=== PATIENT | female | born 1955 | race Caucasian/White ===

== ENCOUNTER 2018-06-12 07:03 | Inpatient (IN) | payer OTHER ==
[~2018-06-12] VITALS: Ht 167.6 cm; Wt 79.4 kg
[~2018-06-12 07:03] MED LIST: ALPR0.25 PO; AMLO2.5T2 PO; ESCI20TA PO; FLUT16SP16 NS; PRO40 PO; PROP10TA10 PO; THIA100T13 PO; TRAM50TA92 PO
[2018-06-12 07:09] VITALS: BP_SYST 97
[2018-06-12] MEDS ORDERED: LOSA100T3 PO (08:07)
[2018-06-12] MEDS ORDERED: MONT10TA22 (08:07)
[2018-06-12] MEDS ORDERED: HYDR12.55 (08:07)
[2018-06-12] MEDS ORDERED: TRAM1TAB33 PO (08:07)
[2018-06-12] MEDS ORDERED: VENL75CA56 PO (08:07)
[2018-06-12] MEDS ORDERED: CARV12.548 PO (08:07)
[2018-06-12] MEDS ORDERED: HYG25 PO (08:07)
[2018-06-12] MEDS ORDERED: NACL 0.9% 1,000 ML IV ONE ×3 (08:08→09:30)
[2018-06-12] MEDS ORDERED: MORPHINE 4 MG/ML INJ. SYRINGE IVP ONE ×2 (08:15→09:45)
[2018-06-12] MEDS ORDERED: ONDANSETRON HCL 4 MG/2 ML VIAL IVP ONE (08:15)
[2018-06-12 09:03] LABS: HEMATOCRIT 41.4 % (36-48); HEMOGLOBIN 14.1 g/dL (12.0-16.0); MEAN CORPUSCULAR HEMOGLOBIN 32 pg (27-31); MEAN CORPUSCULAR HGB CONC 34 % (32-36); MEAN CORPUSCULAR VOLUME 95 fL (79.0-98.0); PLATELET COUNT (AUTO) 259 K/uL (130-430); RED BLOOD CELL COUNT(AUTO) 4.34 MIL/uL (4.2-6.2); RED CELL DISTRIBUTION WIDTH 12.2 % (9.0-15.0); WHITE BLOOD COUNT (AUTO) 13.2 K/uL (4.8-10.8)
[2018-06-12 09:10] LABS: CREATININE 0.87 mg/dL (0.55-1.30)
[2018-06-12 09:12] LABS: PROTHROMBIN TIME 9.7 SECS (9.5-12.5)
[2018-06-12 09:21] LABS: ALBUMIN 3.6 g/dL (3.4-4.8)
[2018-06-12 09:23] LABS: POTASSIUM 2.9 mmol/L (3.5-5.1)
[2018-06-12 09:29] LABS: BAND % (MANUAL) 5 % (0-6); BASOPHILS % (MANUAL) 0 % (0-2); EOSINOPHILS % (MANUAL) 0 % (0-7); LYMPHOCYTES % (MANUAL) 9 % (20-46); MONOCYTES % (MANUAL) 9 % (0-11)
[2018-06-12] MEDS ORDERED: ONDANSETRON HCL 4 MG/2 ML VIAL IVP PRN ×2 (09:30→12:00)
[2018-06-12] MEDS ORDERED: METOCLOPRAMIDE HCL 10 MG/2 ML VIAL IVP PRN (09:30)
[2018-06-12] MEDS ORDERED: KCL 40 mEq in 100 mL (PREMIX) 100 ML IV ONE (09:30)
[2018-06-12] MEDS ORDERED: TEMAZEPAM 15 MG CAPSULE PO PRN (09:30)
[2018-06-12] MEDS ORDERED: KCL 40 mEq in 100 mL (PREMIX) 40 MEQ, LIDOCAINE JECT 2% PF 100 MG 75 MG in NS 150 ML IV ONE (10:15)
[2018-06-12] MEDS ORDERED: POTASSIUM CHLORIDE 40 MEQ, LIDOCAINE JECT 2% PF 100 MG 75 MG in NS 250 ML IV ONE (10:16)
[2018-06-12] MEDS ORDERED: POTASSIUM CHLORIDE 20 MEQ/PKT PACKET ONE (10:29)
[2018-06-12 11:20] VITALS: BP_SYST 112
[2018-06-12] MEDS ORDERED: hydrALAZINE HCL 20 MG/ML VIAL IVP PRN (12:00)
[2018-06-12] MEDS ORDERED: ENALAPRILAT DIHYDRATE 1.25 MG/ML VIAL IVP PRN (12:00)
[2018-06-12] MEDS ORDERED: MORPHINE 2 MG/ML INJ. SYRINGE IVP PRN (12:00)
[2018-06-12] MEDS ORDERED: ACETAMINOPHEN 325 MG TABLET PO PRN (12:00)
[2018-06-12] MEDS ORDERED: cloNIDine HCL 0.1 MG TABLET PO PRN (12:00)
[2018-06-12 12:15] VITALS: BP_SYST 133
[2018-06-12] MEDS: MORPHINE 4 MG/ML INJ. SYRINGE IVP PRN ×3 (12:18→21:23)
[2018-06-12] MEDS: BANANA BAG 1 EA, FOLIC ACID 1 MG, THIAMINE HCL 100 MG, MAGNESIUM SULFATE 1 GM, MVI 10 M... IV SCH ×5 (12:37)
[2018-06-12 16:45] VITALS: BP_SYST 113
[2018-06-12] MEDS ORDERED: MORPHINE SULFATE 10MG/10ML PF AMP EP ONE (18:15)
[2018-06-12] MEDS ORDERED: BUPIVACAINE /PF 0.75% 10 ML VIAL INJ ONE (18:15)
[2018-06-12] MEDS ORDERED: LR 1,000 ML IV.SOLN IV ONE (18:15)
[2018-06-12] MEDS ORDERED: ROPIVACAINE 40 MG/20 ML AMP EP ONE (18:15)
[2018-06-12] MEDS ORDERED: MIDAZOLAM HCL 5 MG/5 ML VIAL IVP ONE (18:15)
[2018-06-12] MEDS ORDERED: CEFAZOLIN 2 GM IVPB PREMIX 50 ML IV ONE (18:15)
[2018-06-12 19:50] VITALS: BP_SYST 111
[2018-06-13] VITALS (7 sets, daily range): BP systolic 70–134
[2018-06-13] MEDS: MORPHINE 4 MG/ML INJ. SYRINGE IVP PRN ×2 (01:43→08:05)
[2018-06-13] MEDS: LORazepam 2 MG/ML VIAL IVP PRN (03:46)
[2018-06-13] MEDS ORDERED: HYDROmorphone 2 MG/ML VIAL IVP PRN (10:30)
[2018-06-13 10:44] LABS: BASOPHILS % (AUTO) 0.5 % (0.0-2.0); EOSINOPHILS % (AUTO) 0.4 % (0.0-4.0); HEMATOCRIT 34.5 % (36-48); LYMPHOCYTES # (AUTO) 0.9 K/uL (1.0-5.5); LYMPHOCYTES % (AUTO) 13.7 % (20.5-51.5); MEAN CORPUSCULAR HEMOGLOBIN 34 pg (27-31); MEAN CORPUSCULAR HGB CONC 35 % (32-36); MEAN CORPUSCULAR VOLUME 97 fL (79.0-98.0); MONOCYTES # (AUTO) 1.2 K/uL (0.0-1.0); MONOCYTES % (AUTO) 17.7 % (1.7-9.3); NEUTROPHILS # (AUTO) 4.4 K/uL (1.8-7.7); NEUTROPHILS % (AUTO) 67.7 % (40.0-70.0); PLATELET COUNT (AUTO) 183 K/uL (130-430); RED BLOOD CELL COUNT(AUTO) 3.58 MIL/uL (4.2-6.2); RED CELL DISTRIBUTION WIDTH 12.5 % (9.0-15.0)
[2018-06-13 11:00] LABS: WHITE BLOOD COUNT (AUTO) 6.5 K/uL (4.8-10.8)
[2018-06-13 11:01] LABS: CALCIUM 8.7 mg/dL (8.4-11.0); CREATININE 0.68 mg/dL (0.55-1.30); POTASSIUM 3.3 mmol/L (3.5-5.1)
[2018-06-13 11:16] LABS: THYROID STIMULATING HORMONE 1.26 uIu/mL (0.36-3.74); TOTAL BILIRUBIN 1.3 mg/dL (0.0-1.0)
[2018-06-13 11:26] LABS: BILIRUBIN,URINE NEGATIVE (NEGATIVE); COLOR,URINE YELLOW (YELLOW); GLUCOSE,URINE NEGATIVE (NEGATIVE); KETONES,URINE NEGATIVE (NEGATIVE); LEUKOCYTE ESTERASE ,URINE 3+ (NEGATIVE); NITRITE, URINE NEGATIVE (NEGATIVE); PROTEIN URINE NEGATIVE (NEGATIVE)
[2018-06-13 11:29] LABS: BLOOD, URINE TRACE (NEGATIVE); CLARITY/URINE SLIGHTLY HAZY (CLEAR)
[2018-06-13 11:50] LABS: BACTERIA,URINE MODERATE /HPF (None Seen); WBC,URINE 20-50 /HPF (0-3)
[2018-06-13] MEDS: BANANA BAG 1 EA, FOLIC ACID 1 MG, THIAMINE HCL 100 MG, MAGNESIUM SULFATE 1 GM, MVI 10 M... IV SCH ×5 (12:37)
[2018-06-13] MEDS ORDERED: POTASSIUM CHLORIDE 40 MEQ, LIDOCAINE JECT 2% PF 100 MG 75 MG in NS 250 ML IV ONE (17:00)
[2018-06-13] MEDS ORDERED: POLYMYXIN 500,000/BACIT.10,000 UNITS in NS IRR 1 L IR ONE (17:09)
[2018-06-13] MEDS ORDERED: ROPIVACAINE 0.2% 550 ML INJ SCH (19:05)
[2018-06-13] MEDS ORDERED: KETOROLAC TROMETHAMINE 30 MG VIAL IVP PRN (19:15)
[2018-06-13] MEDS ORDERED: MORPHINE SULFATE 10MG/10ML PF AMP SP SCH (19:15)
[2018-06-13] MEDS ORDERED: KETOROLAC TROMETHAMINE 60 MG/2 ML VIAL IM PRN (19:15)
[2018-06-13] MEDS ORDERED: OXYCODONE/ACETAMINOPHEN *10*mg/325 mg TABLET PO PRN (19:15)
[2018-06-13] MEDS ORDERED: fentaNYL CITRATE/PF 100 MCG/2 ML AMP IVP PRN ×2 (19:15)
[2018-06-13] MEDS ORDERED: DIPHENHYDRAMINE INJ 50 MG/ML VIAL IVP PRN ×2 (19:15)
[2018-06-13] MEDS ORDERED: ONDANSETRON HCL 4 MG/2 ML VIAL IVP PRN ×3 (19:15)
[2018-06-13] MEDS ORDERED: NALOXONE HCL 0.4 MG/ML AMP (NARCAN) IVP PRN ×2 (19:15)
[2018-06-13] MEDS ORDERED: NALBUPHINE HCL 10 MG/ML AMP IVP PRN ×2 (19:15)
[2018-06-13] MEDS ORDERED: MILK OF MAGNESIA 30 ML UDC PO PRN (22:00)
[2018-06-13] MEDS ORDERED: HYDROcodone/ACETAMIN 5-325 MG TAB (NORCO/ VICODIN) PO PRN (22:00)
[2018-06-13] MEDS ORDERED: MEPERIDINE HCL/PF 25 MG/ML DISP.SYRIN ONE (22:30)
[2018-06-13] MEDS ORDERED: MEPERIDINE HCL/PF 25 MG/ML DISP.SYRIN IVP PRN (22:30)
[2018-06-14] VITALS (12 sets, daily range): BP systolic 97–145
[2018-06-14] MEDS: HYDROmorphone 1 MG INJ. 1 MG/ML AMPUL IVP PRN ×3 (01:11→20:09)
[2018-06-14] MEDS: ASCORBIC ACID 500 MG TABLET PO SCH ×2 (08:36→20:57)
[2018-06-14 09:45] LABS: BASOPHILS % (AUTO) 0.4 % (0.0-2.0); EOSINOPHILS % (AUTO) 0.4 % (0.0-4.0); HEMATOCRIT 32.3 % (36-48); HEMOGLOBIN 10.9 g/dL (12.0-16.0); LYMPHOCYTES # (AUTO) 0.7 K/uL (1.0-5.5); LYMPHOCYTES % (AUTO) 9.8 % (20.5-51.5); MEAN CORPUSCULAR HEMOGLOBIN 33 pg (27-31); MEAN CORPUSCULAR HGB CONC 34 % (32-36); MEAN CORPUSCULAR VOLUME 97 fL (79.0-98.0); MONOCYTES # (AUTO) 1.1 K/uL (0.0-1.0); MONOCYTES % (AUTO) 14.8 % (1.7-9.3); NEUTROPHILS # (AUTO) 5.5 K/uL (1.8-7.7); NEUTROPHILS % (AUTO) 74.6 % (40.0-70.0); PLATELET COUNT (AUTO) 181 K/uL (130-430); RED BLOOD CELL COUNT(AUTO) 3.33 MIL/uL (4.2-6.2); RED CELL DISTRIBUTION WIDTH 12.5 % (9.0-15.0); WHITE BLOOD COUNT (AUTO) 7.3 K/uL (4.8-10.8)
[2018-06-14 09:54] LABS: CALCIUM 8.5 mg/dL (8.4-11.0); CREATININE 0.85 mg/dL (0.55-1.30); POTASSIUM 3.9 mmol/L (3.5-5.1)
[2018-06-14 10:00] LABS: ALBUMIN 2.7 g/dL (3.4-4.8); TOTAL BILIRUBIN 1.1 mg/dL (0.0-1.0)
[2018-06-14] MEDS ORDERED: chlordiazePOXIDE HCL 25 MG CAPSULE PO ONE (10:00)
[2018-06-14] MEDS: LORazepam 2 MG/ML VIAL IVP PRN (10:00)
[2018-06-14] MEDS: BANANA BAG 1 EA, FOLIC ACID 1 MG, THIAMINE HCL 100 MG, MAGNESIUM SULFATE 1 GM, MVI 10 M... IV SCH ×5 (12:35)
[2018-06-14] MEDS: chlordiazePOXIDE HCL 25 MG CAPSULE PO SCH ×2 (15:30→20:56)
== END 2018-06-14 22:29 | DRG 493 ==
LOC: SED 07:03 → SMU 09:29
PROVIDERS: ADMIT Internal Medicine Hospice and Palliative Medicine; ATTEND Internal Medicine Hospice and Palliative Medicine
PROC: 0QSH04Z Reposition Left Tibia with Internal Fixation Device, Open Approach (ICD-10-PCS; 2018-06-13)
PROC: 0JCP0ZZ Extirpation of Matter from Left Lower Leg Subcutaneous Tissue and Fascia, Open Approach (ICD-10-PCS; 2018-06-13)
PROC: 0QSK04Z Reposition Left Fibula with Internal Fixation Device, Open Approach (ICD-10-PCS; principal; 2018-06-13 17:30)
DX: S82.842A Displaced bimalleolar fracture of left lower leg, initial encounter for closed fracture (principal); E87.1 Hypo-osmolality and hyponatremia; G89.29 Other chronic pain; E87.6 Hypokalemia; M81.0 Age-related osteoporosis without current pathological fracture; I10 Essential (primary) hypertension; E11.9 Type 2 diabetes mellitus without complications; Z96.653 Presence of artificial knee joint, bilateral; T50.2X5A Adverse effect of carbonic-anhydrase inhibitors, benzothiadiazides and other diuretics, initial encounter; J44.9 Chronic obstructive pulmonary disease, unspecified; G40.909 Epilepsy, unspecified, not intractable, without status epilepticus; F32.9 Major depressive disorder, single episode, unspecified; F10.20 Alcohol dependence, uncomplicated; W18.39XA Other fall on same level, initial encounter; Y93.89 Activity, other specified; Y92.89 Other specified places as the place of occurrence of the external cause; Y99.8 Other external cause status; Z98.84 Bariatric surgery status; Z79.899 Other long term (current) drug therapy; Z82.49 Family history of ischemic heart disease and other diseases of the circulatory system
CPT/HCPCS: 36415; 71045; 76001; 80053; 81000-TC; 82533; 83690-TC; 84443-TC; 85007; 85025; 85027; 85610-TC; 85730-TC; 87081; 87086; 87186-TC; 93005; 94010; 96361; 96374; 96375; 96376; 97110-GP; 97530-GP; 99285; G0482; J0690; J1170; J1885; J2060; J2175; J2250; J2270; J2274; J2405; J2795; J3411; J3475; J3480; J3490; J7030; J7050; J7120